=== PATIENT | female | born 1960 | race Caucasian/White ===

== ENCOUNTER 2019-11-11 14:18 | Emergency (ER) | payer MEDICARE, MEDICAID ==
[~2019-11-11] VITALS: Ht 160 cm; Wt 62.6 kg
[~2019-11-11 14:18] MED LIST: ASPI-691 PO; CYCL-259 PO; TRAZ-137 PO
[2019-11-11 14:23] VITALS: BP 144/71
--- NOTE | 2019-11-11 15:10 | NUR ---
REPORT GIVEN TO STACI BOB.
== END 2019-11-11 15:14 | disposition home or self-care (01) ==
LOC: ED 15:10
DX: H65.02 Acute serous otitis media, left ear (principal); Z86.718 Personal history of other venous thrombosis and embolism; F17.210 Nicotine dependence, cigarettes, uncomplicated
CPT/HCPCS: 99283

== ENCOUNTER 2020-04-10 18:20 | Emergency (ER) | payer MEDICAID, MEDICARE ==
[~2020-04-10] VITALS: Ht 160 cm; Wt 65.0 kg
[~2020-04-10 18:20] MED LIST changes: +ASCO500T9 PO; +CEFT2VIA13 IV; +FERR-51 PO; +HYDR-3237 PO; +MUPI22OI2 TP; +NICO-487 TD; +POLY17PO5 PO; +SENN-193 PO; -TRAZ-137 PO; +TRAZ-175 PO; +VANC1PLA9 IV
[2020-04-10 18:27] VITALS: BP 120/71
--- NOTE | 2020-04-10 18:27 | NUR ---
PT WAS DISCHARGED FROM [facility] A FEW HOURS AGO, SENT OVER TO [facility]. [facility] REFUSED PATIENT AND CALLED [facility] TO RETURN HER TO US, D/T AN ABSCESS ON THE MEDIAL ASPECT OF HER RIGHT CALF. PT STATES NO NEW COMPLAINTS.
[2020-04-10] MEDS ORDERED: LIDOCAINE-MPF 1%, 5ML ONE (19:42)
[2020-04-10] MEDS ORDERED: LIDOCAINE-MPF 1%, 5ML INFIL ONE (20:00)
[2020-04-10] MEDS ORDERED: MORPHINE SULFATE 4 MG/ML, 1ML IVPush PRN (20:30)
[2020-04-10] MEDS ORDERED: MORPHINE SULFATE 4 MG/ML, 1ML ONE (20:54)
--- NOTE | 2020-04-10 21:26 | NUR ---
TASK RN: PT RESTING IN [facility] AT THIS TIME; [facility] [employer] HAS PAPERWORK FOR PT TO BE TRANSPORTED TO [facility]IA [facility]. ACCEPTING PHYSICIAN RECEIVED. AWAITING ETA FOR TRANSPORT OF PT AT THIS TIME.
== END 2020-04-10 22:55 | disposition short-term general hospital (02) ==
LOC: ED 20:56
DX: L03.115 Cellulitis of right lower limb (principal); Z90.49 Acquired absence of other specified parts of digestive tract; Z86.718 Personal history of other venous thrombosis and embolism
CPT/HCPCS: 10061; 96374; 99285; J2270

== ENCOUNTER 2020-04-25 12:10 | Emergency (ER) | payer MEDICARE, MEDICAID ==
[~2020-04-25] VITALS: Ht 160 cm; Wt 64.1 kg
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
[2020-04-25] MEDS ORDERED: VANCOMYCIN PER PHARMACY MC ONE (13:00)
[2020-04-25 13:15] VITALS: BP 134/71
--- NOTE | 2020-04-25 13:23 | NUR ---
TASK RN: Yellow slip sent to pharmacy to request medication per emar.
[2020-04-25 13:25] LABS: BASOPHILS # (AUTO) 0.09 x10^3/uL (0-0.1); BASOPHILS % (AUTO) 1 % (0-1); EOSINOPHILS % (AUTO) 4 % (1-7); LYMPHOCYTES # (AUTO) 4.58 x10^3/uL (1-3.4); LYMPHOCYTES % (AUTO) 53 % (22-44); MD NO; MEAN CORPUSCULAR HGB CONC 32.6 g/dL (32.4-35.8); MEAN CORPUSCULAR VOLUME 101.5 fL (80-100); MONOCYTES # (AUTO) 1.26 x10^3/uL (0.2-0.8); MONOCYTES % (AUTO) 15 % (2-9); NEUTROPHILS # (AUTO) 2.43 x10^3/uL (1.8-6.8); NEUTROPHILS % (AUTO) 28 % (42-75); PLATELET COUNT 380 x10^3/uL (130-400); RED BLOOD COUNT 3.46 x10^6/uL (3.82-5.3); RED CELL DISTRIBUTION WIDTH 15.6 % (9.6-15.2)
[2020-04-25] MEDS ORDERED: PHARMACOKINETIC CONSULTATION MC ONE (13:30)
[2020-04-25 13:36] LABS: ALBUMIN 2.7 g/dL (3.4-5.0); ANION GAP 5 mmol/L (5-15); CHLORIDE 107 mmol/L (98-107); CREATININE 0.77 mg/dL (0.55-1.02)
[2020-04-25] MEDS ORDERED: VANCOMYCIN 1,500 MG in SODIUM CHLORIDE 0.9% 250 ML IV ONE (14:00)
--- NOTE | 2020-04-25 14:09 | NUR ---
ADMITTING MD AT BEDSIDE FOR ASSESSMENT. SW CALLED PER ADMITTING MD REQUEST.
--- NOTE | 2020-04-25 14:25 | NUR ---
PT WANTS TO LEAVE, STATES SHE NEEDS TO GO HOME AND FEED HER CAT, STATES SHE "DOESNT WANT TO GO THROUGH THIS CRAP [facility]." ADMITTING MD DR LUIS INTO SPEAK WITH PT. SW CALLED AGAIN. PT STATES SHE NEES TO FEED HER CAT, AND SHE "GAVE MY KEYS TO SOME LADY AND I DONT EVEN KNOW HER REALLY." DR. LUIS EXPLAINING RISKS OF LEAVING AMA TO PT.
--- NOTE | 2020-04-25 14:28 | NUR ---
DR. LUIS REMAINS AT BEDSIDE TRYING TO DISCUSS A PLAN WITH PT. PT STILL WORRIED ABOUT HER CAT AND HER KEYS.
--- NOTE | 2020-04-25 14:45 | NUR ---
PT ELOPED, HAS ALL OWN BELONGINGS FROM ROOM. PT HAS NOT RETURNED TO ROOM AT THIS TIME, PT HAS BEEN ASSUMED TO HAVE LEFT AMA. PT DID NOT SIGN AMA PAPERWORK.
== END 2020-04-25 15:00 | disposition left against medical advice (07) ==
LOC: ED 13:13 → EDIP 13:14 → UNDOADMIN 13:14 → ED 15:00
DX: L03.113 Cellulitis of right upper limb (principal); Z86.718 Personal history of other venous thrombosis and embolism; Z90.49 Acquired absence of other specified parts of digestive tract; Z90.81 Acquired absence of spleen
CPT/HCPCS: 36415; 80048; 82040; 85025; 87040; 99283